=== PATIENT | male | born 1935 | race Caucasian/White ===

== ENCOUNTER 2021-02-28 06:57 | Inpatient (IN) ==
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
[2021-02-28 07:34] LABS: Basophils # (auto) 0.03 K/uL (0-0.2); Basophils % (auto) 0.3 %; Eosinophils # (auto) 0.26 K/uL (0-0.5); Eosinophils % (auto) 2.8 %; Hematocrit (blood only) 37.9 % (42-52); Hemoglobin 12.9 g/dL (14.0-18.0); Immature Granulocytes # (auto) 0.27 K/uL (0.00-0.02); Immature Granulocytes % (auto) 2.9 %; Lymphocytes # (auto) 1.96 K/uL (1.2-3.4); Lymphocytes % (auto) 21.2 %; Mean Platelet Volume 9.4 fL (7.4-10.4); Monocytes # (auto) 0.88 K/uL (0.11-0.59); Monocytes % (auto) 9.5 %; Neutrophils # (auto) 5.86 K/uL (1.4-6.5); Neutrophils % (auto) 63.3 %; Platelet Count 198 K/uL (130-400); RDW Coefficient of Variation 14.9 % (11.5-14.5); RDW Standard Deviation 50.5 fL (36.4-46.3); Red Blood Count 4.03 M/uL (4.7-6.1); White Blood Count 9.26 K/uL (4.8-10.8)
[2021-02-28 07:53] LABS: INR 1.3 (0.9-1.1); Prothrombin Time 12.5 Seconds (9.0-12.0)
[2021-02-28 07:54] LABS: Albumin Level 3.3 gm/dl (3.4-5.0); BUN Creatinine Ratio 18.2 (10-20); Calcium 9.1 mg/dl (8.5-10.1); Creatinine Clr Calc Pharmacy 67.5 ml/min; Est GFR (Non-African American) 70.8 ml/min; Potassium 3.9 mmol/L (3.5-5.1)
[2021-02-28 07:57] LABS: Albumin Globulin Ratio 0.9 (0.9-2); Bilirubin,Total 0.7 mg/dl (0.2-1); Globulin 3.7 gm/dl (2.5-4.0)
[2021-02-28] MEDS ORDERED: OPTIRAY 320 100ml IV ONE (08:42)
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
[2021-02-28] MEDS ORDERED: MoRPHine SULFATE 4 MG/ML 1 ML CARP\\VIAL IV STA (11:46)
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
--- NOTE | 2021-02-28 12:38 | Electrocardiogram Report ---
Test Reason : Blood Pressure : / mmHG Vent. Rate : 060 BPM Atrial Rate : 060 BPM P-R Int : 416 ms QRS Dur : 210 ms QT Int : 490 ms P-R-T Axes : 083 -38 264 degrees QTc Int : 490 ms AV sequential or dual chamber electronic pacemaker with prolonged AV conduction Abnormal ECG When compared with ECG of 14-JAN-2013 21:45, Electronic ventricular pacemaker has replaced Sinus rhythm Confirmed by Brent Marcelo ([id number]) on 02/28/2021 12:38:26 PM Referred By: Confirmed By:Brent Marcelo
[2021-02-28] MEDS ORDERED: hydrALAZINE HCL 20 MG/ML VIAL IV PRN (12:46)
[2021-02-28] MEDS ORDERED: hydrALAZINE HCL 20 MG/ML VIAL IV ONE (12:46)
--- NOTE | 2021-02-28 13:32 | XRay Report ---
LEFT HAND 3 VIEWS CLINICAL HISTORY: First finger pain. FINDINGS: 3 views of the left hand are obtained. No prior studies are available for comparison at the time of dictation. The skeletal structures are osteopenic. No acute fracture is seen. Advanced degen erative change is seen at the radiocarpal articulation. There is negative ulnar variance with degener ative change at the first radioulnar joint. There is widening between the scaphoid and the lunate wit h proximal migration of the capitate consistent with a slack wrist. Advanced osteoarthritic changes s een throughout the wrist and hand, greatest the first carpal metacarpal and metacarpophalangeal joint s. Advanced osteoarthritic change is seen involving the interphalangeal joints, distal greater than p roximal. 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 There is bony subluxation at the f ifth proximal interphalangeal joint as well as the second and third metacarpophalangeal joints. There is chronic posttraumatic deformity of the distal radial an ulnar metaphysis. Bony overgrowth is seen around the wrist. Mild diffuse soft tissue edema is present in the fingers. IMPRESSION: 1. No acute fracture is identified. 2. Osteopenia with advanced degenerative change throughout the wrist and hand as above. 3. Mild diffuse soft tissue edema is noted. Electronically signed by: Jacobo Hartman M.D. 02/28/2021 1:31 PM
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
[2021-02-28] MEDS: ACETAMINOPHEN 325 MG TAB PO SCH ×2 (14:11→18:41)
[2021-02-28] MEDS ORDERED: ONDANSETRON INJ 2 MG/ML 2 ML VIAL IV PRN (15:54)
[2021-02-28] MEDS ORDERED: MoRPHine SULFATE 2 MG/ML CARP IV PRN (15:54)
[2021-02-28] MEDS ORDERED: ACETAMINOPHEN 325 MG TAB PO PRN (15:54)
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
[2021-02-28 16:37] LABS: Basophils # (auto) 0.03 K/uL (0-0.2); Basophils % (auto) 0.3 %; Eosinophils # (auto) 0.22 K/uL (0-0.5); Eosinophils % (auto) 2.5 %; Hemoglobin 13.2 g/dL (14.0-18.0); Immature Granulocytes # (auto) 0.19 K/uL (0.00-0.02); Immature Granulocytes % (auto) 2.1 %; Lymphocytes # (auto) 2.17 K/uL (1.2-3.4); Lymphocytes % (auto) 24.3 %; Mean Corpuscular Hemoglobin 31.7 pg (25-34); Mean Corpuscular Hgb Conc 33.8 g/dL (32-36); Mean Corpuscular Volume 93.8 fL (80-100); Mean Platelet Volume 9.7 fL (7.4-10.4); Monocytes # (auto) 0.76 K/uL (0.11-0.59); Monocytes % (auto) 8.5 %; Neutrophils # (auto) 5.55 K/uL (1.4-6.5); Neutrophils % (auto) 62.3 %; Platelet Count 203 K/uL (130-400); RDW Coefficient of Variation 15.1 % (11.5-14.5); RDW Standard Deviation 50.9 fL (36.4-46.3); Red Blood Count 4.16 M/uL (4.7-6.1); White Blood Count 8.92 K/uL (4.8-10.8)
[2021-02-28] MEDS ORDERED: traMADol HCL 50 MG TABLET PO PRN (17:30)
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
[2021-02-28] MEDS ORDERED: guaiFENesin/CODEINE 100MG/10MG 5ML UDC PO PRN (22:04)
[2021-03-01] MEDS: ACETAMINOPHEN 325 MG TAB PO SCH ×4 (01:32→20:10)
[2021-03-01 06:34] LABS: Hematocrit (blood only) 39.5 % (42-52); Hemoglobin 13.1 g/dL (14.0-18.0); Mean Corpuscular Hemoglobin 31.6 pg (25-34); Mean Corpuscular Hgb Conc 33.2 g/dL (32-36); Mean Corpuscular Volume 95.4 fL (80-100); Mean Platelet Volume 9.8 fL (7.4-10.4); Platelet Count 187 K/uL (130-400); RDW Coefficient of Variation 15.2 % (11.5-14.5); RDW Standard Deviation 53.2 fL (36.4-46.3); Red Blood Count 4.14 M/uL (4.7-6.1); White Blood Count 7.68 K/uL (4.8-10.8)
[2021-03-01 07:04] LABS: Albumin Level 3.2 gm/dl (3.4-5.0); BUN Creatinine Ratio 15.9 (10-20); Calcium 8.8 mg/dl (8.5-10.1); Creatinine Clr Calc Pharmacy 67.9 ml/min; Est GFR (African American) 83.1 ml/min; Est GFR (Non-African American) 71.7 ml/min; Magnesium 1.9 mg/dl (1.8-2.4); Potassium 3.9 mmol/L (3.5-5.1)
[2021-03-01 07:08] LABS: Albumin Globulin Ratio 0.9 (0.9-2); Bilirubin,Total 0.9 mg/dl (0.2-1); Globulin 3.5 gm/dl (2.5-4.0); Total Protein 6.7 gm/dl (6.4-8.2)
[2021-03-01 07:33] LABS: Estimated Average Glucose 111 mg/dl; Hemoglobin A1C 5.5 % (4.5-5.6)
--- NOTE | 2021-03-01 08:49 | Communication Note ---
Date of Service: March 01, [address] report on the study which was done this morning 6 to 12 hours [address] the initial [address] scan and there is no change in the 7 mm probable c alcification in the falx and radiology agreed that this is likely calcium and blood medical history small localized letter to never be totally excluded. Radiology recommended a repeat CT in a day or two and I agree but at this point I certainly would not do another CT scan for at least 48 hours unless the situation change and if his scan at 48 hours if stable I do not think any further studies on this type are needed Dr. Comer will be making rounds for the next week and if the 48 hour imaging study shows bleeding he could be contacted but clearly if there is evidence for emergent hemorrhage then the neurosurgical department at [place] would need to be consulted as there is very little medical neurology service can offer or intracranial hemorrhage Neurology will officially sign off the case Pedro Cornelius
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
[2021-03-01] MEDS ORDERED: XOPENEX/ATROVENT 1.25mg/0.5MG NEB COMBO NEB STA (16:17)
[2021-03-01] MEDS ORDERED: XOPENEX/ATROVENT 1.25mg/0.5MG NEB COMBO NEB PRN (16:19)
[2021-03-01] MEDS ORDERED: LEVALBUTEROL 1.25MG/0.5ML NEB INH ONE (16:30)
[2021-03-01] MEDS ORDERED: IPRATROPIUM BROMIDE NEB SOLN 0.02% 2.5 ML VIAL INH ONE (16:30)
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
[2021-03-01] MEDS: lisinopril 20 MG TAB PO SCH (17:40)
[2021-03-01] MEDS: FLUTICASONE/VILANTEROL 200/25MCG 14 PUFFS/INHALER INH SCH (17:40)
[2021-03-01] MEDS: IPRATROPIUM BROMIDE NEB SOLN 0.02% 2.5 ML VIAL INH PRN (19:43)
[2021-03-01] MEDS: LEVALBUTEROL 1.25MG/0.5ML NEB INH PRN (19:45)
[2021-03-02] MEDS: ACETAMINOPHEN 325 MG TAB PO SCH ×4 (04:18→19:59)
[2021-03-02 07:05] LABS: Hematocrit (blood only) 36.8 % (42-52); Hemoglobin 12.1 g/dL (14.0-18.0); Mean Corpuscular Hemoglobin 31.5 pg (25-34); Mean Corpuscular Hgb Conc 32.9 g/dL (32-36); Mean Corpuscular Volume 95.8 fL (80-100); Mean Platelet Volume 10.1 fL (7.4-10.4); Platelet Count 192 K/uL (130-400); RDW Coefficient of Variation 15.3 % (11.5-14.5); RDW Standard Deviation 53.6 fL (36.4-46.3); Red Blood Count 3.84 M/uL (4.7-6.1); White Blood Count 9.05 K/uL (4.8-10.8)
[2021-03-02 07:43] LABS: Albumin Level 2.9 gm/dl (3.4-5.0); BUN Creatinine Ratio 22.8 (10-20); Calcium 8.7 mg/dl (8.5-10.1); Creatinine Clr Calc Pharmacy 77.7 ml/min; Est GFR (African American) 91.7 ml/min; Est GFR (Non-African American) 79.1 ml/min; Potassium 3.8 mmol/L (3.5-5.1)
[2021-03-02 07:46] LABS: Albumin Globulin Ratio 0.8 (0.9-2); Bilirubin,Total 0.9 mg/dl (0.2-1); Globulin 3.7 gm/dl (2.5-4.0); Total Protein 6.6 gm/dl (6.4-8.2)
[2021-03-02] MEDS: lisinopril 20 MG TAB PO SCH (08:33)
[2021-03-02] MEDS: FLUTICASONE/VILANTEROL 200/25MCG 14 PUFFS/INHALER INH SCH (08:34)
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
[2021-03-02 14:52] LABS: Hematocrit (blood only) 36.9 % (42-52); Hemoglobin 12.1 g/dL (14.0-18.0)
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
[2021-03-02 22:31] LABS: Appearance Urine Clear (Clear); Bilirubin Urine Negative (Negative); Blood Urine Negative (Negative); Color Urine Yellow; Glucose Urine UA Negative (Negative); Ketones Urine Negative (Negative); Leukocyte Esterase Urine Negative (Negative); Nitrite Urine Negative (Negative); Protein Urine Negative (Negative); Specific Gravity Urine 1.012 (1.000-1.030); Urobilinogen Urine Negative (Negative); pH Urine 6.5 (4.5-7.5)
[2021-03-02] MEDS ORDERED: ZOLPIDEM TARTRATE 5 MG TAB PO STA (23:57)
[2021-03-03] MEDS: ACETAMINOPHEN 325 MG TAB PO SCH ×2 (00:14→06:18)
[2021-03-03] MEDS: IPRATROPIUM BROMIDE NEB SOLN 0.02% 2.5 ML VIAL INH PRN (00:43)
[2021-03-03] MEDS: LEVALBUTEROL 1.25MG/0.5ML NEB INH PRN (00:43)
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
[2021-03-03 09:09] LABS: Basophils # (auto) 0.04 K/uL (0-0.2); Basophils % (auto) 0.5 %; Eosinophils # (auto) 0.33 K/uL (0-0.5); Hematocrit (blood only) 35.6 % (42-52); Hemoglobin 11.6 g/dL (14.0-18.0); Immature Granulocytes # (auto) 0.19 K/uL (0.00-0.02); Immature Granulocytes % (auto) 2.3 %; Lymphocytes # (auto) 1.82 K/uL (1.2-3.4); Lymphocytes % (auto) 22.2 %; Mean Corpuscular Hemoglobin 31.3 pg (25-34); Mean Corpuscular Hgb Conc 32.6 g/dL (32-36); Mean Platelet Volume 9.6 fL (7.4-10.4); Monocytes # (auto) 0.89 K/uL (0.11-0.59); Monocytes % (auto) 10.9 %; Neutrophils # (auto) 4.91 K/uL (1.4-6.5); Neutrophils % (auto) 60.1 %; Platelet Count 201 K/uL (130-400); RDW Coefficient of Variation 15.4 % (11.5-14.5); Red Blood Count 3.71 M/uL (4.7-6.1); White Blood Count 8.18 K/uL (4.8-10.8)
[2021-03-03] MEDS: lisinopril 20 MG TAB PO SCH (09:09)
[2021-03-03] MEDS: FLUTICASONE/VILANTEROL 200/25MCG 14 PUFFS/INHALER INH SCH (09:09)
[2021-03-03 09:27] LABS: Albumin Level 2.9 gm/dl (3.4-5.0); BUN Creatinine Ratio 23.2 (10-20); Calcium 8.6 mg/dl (8.5-10.1); Creatinine Clr Calc Pharmacy 89.6 ml/min; Est GFR (African American) 97.2 ml/min; Est GFR (Non-African American) 83.9 ml/min
[2021-03-03 09:30] LABS: Albumin Globulin Ratio 0.8 (0.9-2); Bilirubin,Total 0.6 mg/dl (0.2-1); Globulin 3.7 gm/dl (2.5-4.0); Total Protein 6.6 gm/dl (6.4-8.2)
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
== END 2021-03-03 13:50 | disposition home health service (06) | DRG 605 ==
LOC: ED 06:57 → 2S 12:26